=== PATIENT | male | born 2000 | race Caucasian/White ===

== ENCOUNTER 2024-04-12 14:41 | Emergency (ER) | payer OTHER ==
[~2024-04-12] VITALS: Ht 185.4 cm; Wt 120.7 kg
[2024-04-12 14:49] VITALS: BP 108/69; PULSE 112; RESP 22; TEMP 101.9; O2SAT 97
[2024-04-12] MEDS ORDERED: ACET500T99 PO (15:13)
[2024-04-12] MEDS ORDERED: IBUP-2213 PO (15:13)
[2024-04-12] MEDS ORDERED: BENZ200C4 PO (15:13)
[2024-04-12] MEDS: IBUPROFEN 600 MG TAB PO ONE (15:20)
[2024-04-12] MEDS: ACETAMINOPHEN 325 MG TAB PO ONE (15:21)
[2024-04-12 15:44] LABS: FLU A ANTIGEN NEGATIVE (NEGATIVE); FLU B ANTIGEN NEGATIVE (NEGATIVE)
== END 2024-04-12 15:45 | disposition home or self-care (01) ==
LOC: MED 14:41
DX: J06.9 Acute upper respiratory infection, unspecified (principal); U07.1 COVID-19; B97.89 Other viral agents as the cause of diseases classified elsewhere; Z79.899 Other long term (current) drug therapy
CPT/HCPCS: 99283